=== PATIENT | male | born 1950 | race Caucasian/White ===

== ENCOUNTER 2021-05-03 13:36 | Emergency (ER) | payer OTHER ==
[~2021-05-03] VITALS: Ht 175.3 cm; Wt 70.3 kg
[2021-05-03 13:36] VITALS: BP 131/79
--- NOTE | 2021-05-03 13:37 | NUR ---
PT BIBA AND TAKEN TO BED 11
[2021-05-03 13:59] VITALS: BP 131/79
[2021-05-03] MEDS ORDERED: KETOROLAC 30 MG/ML VIAL IM ONE (14:10)
--- NOTE | 2021-05-03 14:24 | NUR ---
PT TAKEN TO XR VIA [facility].
[2021-05-03] MEDS ORDERED: HYDROcodone/APAP 5/325 MG 1 TAB TAB PO ONE (14:25)
--- NOTE | 2021-05-03 14:47 | NUR ---
[facility]
--- NOTE | 2021-05-03 15:00 | NUR ---
PT PROVIDED WITH URINAL BEDSIDE
[2021-05-03] MEDS ORDERED: NAPR-54 PO (15:22)
== END 2021-05-03 15:34 | disposition home or self-care (01) ==
LOC: MED 13:36
DX: M54.50 Low back pain, unspecified (principal); I11.0 Hypertensive heart disease with heart failure; I50.9 Heart failure, unspecified; Z98.890 Other specified postprocedural states; W19.XXXA Unspecified fall, initial encounter; Y93.89 Activity, other specified; Y92.89 Other specified places as the place of occurrence of the external cause; Y99.8 Other external cause status
CPT/HCPCS: 72072; 72110; 96372; 99284; J1885

== ENCOUNTER 2021-07-14 21:18 | Emergency (ER) | payer MEDICARE ==
[~2021-07-14] VITALS: Ht 190.5 cm; Wt 72.6 kg
[~2021-07-14 21:18] MED LIST: NAPR-54 PO
--- NOTE | 2021-07-14 21:24 | NUR ---
PT W/C ASSISTED TO LOBBY TO A/W EVALUATION.
[2021-07-14 21:27] VITALS: BP 113/72
--- NOTE | 2021-07-14 22:29 | NUR ---
RECEIVED CALL FROM ADMITTING STATINCarlos Enrique VOSSBS @ 2228 Addendum: 07/14/21 at 2234 by [facility] PATIENT LEFT WITHOUT BEING SEEN BY DR. ARTEAGA. NO FURTHER CARE PROVIDED FOR PATIENT.
== END 2021-07-14 22:28 | disposition left against medical advice (07) ==
LOC: MED 21:18
DX: M54.9 Dorsalgia, unspecified (principal); G89.29 Other chronic pain; Z53.21 Procedure and treatment not carried out due to patient leaving prior to being seen by health care provider

== ENCOUNTER 2022-02-25 16:10 | Emergency (ER) | payer MEDICARE ==
[~2022-02-25] VITALS: Ht 182.9 cm; Wt 74.8 kg
[2022-02-25 16:19] VITALS: BP 140/70
--- NOTE | 2022-02-25 18:10 | NUR ---
Patient being evaluated by DR ALANIZ at bedside.
[2022-02-25] MEDS ORDERED: MORPHINE SULFATE 4 MG/ML SYR IM ONE (18:20)
[2022-02-25] MEDS ORDERED: IBUP-2213 PO (18:27)
[2022-02-25] MEDS ORDERED: ACET-8905 PO (18:27)
--- NOTE | 2022-02-25 18:29 | NUR ---
PT REFUSING TO BE MOVED TO BED AND MEDICATED. MADE AWARE
--- NOTE | 2022-02-25 18:47 | NUR ---
PT PLACED IN RIGHT ORTHO-SHOE CMS WNL BEFORE AND AFTER. ERMD AND RN NOTIFIED.
--- NOTE | 2022-02-25 19:35 | NUR ---
Patient discharged with v/s stable. Written and verbal after care instructions given and explained. Patient verbalized understanding. Ambulatory with to car. All questions addressed prior to discharge. Advised to follow up with PMD.
== END 2022-02-25 19:35 | disposition home or self-care (01) ==
LOC: MED 16:10
DX: S92.424A Nondisplaced fracture of distal phalanx of right great toe, initial encounter for closed fracture (principal); I11.0 Hypertensive heart disease with heart failure; I50.9 Heart failure, unspecified; Z79.899 Other long term (current) drug therapy; Z98.890 Other specified postprocedural states; X58.XXXA Exposure to other specified factors, initial encounter; Y93.89 Activity, other specified; Y92.89 Other specified places as the place of occurrence of the external cause; Y99.8 Other external cause status
CPT/HCPCS: 73660; 99283

== ENCOUNTER 2023-06-10 21:36 | Emergency (ER) | payer MEDICARE ==
[~2023-06-10] VITALS: Ht 182.9 cm; Wt 70.3 kg
[~2023-06-10 21:36] MED LIST changes: +ACET-8905 PO; +IBUP-2213 PO
[2023-06-10 21:40] VITALS: BP 168/91; PULSE 69; RESP 18; TEMP 97.4; O2SAT 95
[2023-06-10] MEDS: HYDROcodone/APAP 5/325 MG 1 TAB TAB PO ONE (22:29)
[2023-06-11 01:08] VITALS: BP 142/91; PULSE 69; RESP 18; TEMP 97.4; O2SAT 95
== END 2023-06-11 01:08 | disposition home or self-care (01) ==
LOC: MED 21:36
DX: S50.311A Abrasion of right elbow, initial encounter (principal); M25.561 Pain in right knee; M54.50 Low back pain, unspecified; I11.0 Hypertensive heart disease with heart failure; Z79.899 Other long term (current) drug therapy; Z88.8 Allergy status to other drugs, medicaments and biological substances; W18.30XA Fall on same level, unspecified, initial encounter; Y93.89 Activity, other specified; Y92.89 Other specified places as the place of occurrence of the external cause; Y99.8 Other external cause status
CPT/HCPCS: 73080; 99283

== ENCOUNTER 2023-06-11 15:23 | Inpatient (IN) | payer MEDICARE ==
[~2023-06-11] VITALS: Ht 177.8 cm; Wt 72.6 kg
[~2023-06-11 15:23] MED LIST changes: +NAPR-337 PO; -NAPR-54 PO
[2023-06-11 15:41] VITALS: BP 166/96; PULSE 78; RESP 18; TEMP 97.8; O2SAT 98
[2023-06-11] MEDS: NACL 0.9% 1,000 ML IV ONE ×2 (16:36→18:53)
[2023-06-11 17:27] LABS: BASOPHILS # (AUTO) 0.1 K/uL (0.00-0.22); BASOPHILS % (AUTO) 0.7 % (0.0-2.0); EOSINOPHILS % (AUTO) 0.1 % (0.0-4.0); HEMOGLOBIN 12.2 g/dL (12.0-18.0); LYMPHOCYTES # (AUTO) 0.4 K/uL (2.0-11.5); LYMPHOCYTES % (AUTO) 5.7 % (20.5-51.1); MEAN CORPUSCULAR HEMOGLOBIN 37 pg (27-31); MEAN CORPUSCULAR HGB CONC 35 g/dL (33-37); MEAN CORPUSCULAR VOLUME 105.6 fL (80-94); MONOCYTES # (AUTO) 0.6 K/uL (0.8-1.0); MONOCYTES % (AUTO) 8.1 % (1.7-9.3); NEUTROPHILS # (AUTO) 6.7 K/uL (1.8-7.7); NEUTROPHILS % (AUTO) 85.4 % (42.2-75.2); PLATELET COUNT (AUTO) 137 K/uL (140-450); RED BLOOD CELL COUNT(AUTO) 3.31 MIL/uL (4.20-6.10); RED CELL DISTRIBUTION WIDTH 12.7 % (11.6-13.7); WHITE BLOOD COUNT (AUTO) 7.8 K/uL (4.8-10.8)
[2023-06-11 17:44] LABS: ANION GAP 18.1 (8-16); CALCIUM 9.2 mg/dL (8.5-10.1); CARBON DIOXIDE 23.7 mmol/L (21-32); POTASSIUM 3.8 mmol/L (3.5-5.1)
[2023-06-11 17:48] LABS: INR 1.6 (0.8-1.2); PROTHROMBIN TIME 16.4 secs (10.8-13.4)
[2023-06-11 17:56] LABS: PARTIAL THROMBOPLASTIN TIME 50.5 secs (22-35.6)
[2023-06-11 18:14] LABS: ALANINE AMINOTRANSFERASE 24 U/L (12-78); ALKALINE PHOSPHATASE 128 U/L (50-136); ASPARTATE AMINOTRANSFERASE 51 U/L (15-37); BILIRUBIN,DIRECT 0.6 mg/dL (0.0-0.3); CREATINE KINASE, TOTAL 182 U/L (39-308); THYROID STIMULATING HORMONE 2.86 uIU/mL (0.34-3.74); TOTAL BILIRUBIN 1.6 mg/dL (0.0-1.0)
[2023-06-11 18:30] LABS: APPEARANCE,URINE CLEAR (CLEAR); BILIRUBIN,URINE NEGATIVE (NEGATIVE); BLOOD, URINE TRACE-I (NEGATIVE); COLOR,URINE YELLOW (YELLOW); LEUKOCYTE ESTERASE ,URINE NEGATIVE (NEGATIVE); NITRITE, URINE NEGATIVE (NEGATIVE); PROTEIN,URINE NEGATIVE (NEGATIVE); UGLUCOSE NEGATIVE (NEGATIVE); UROBILINOGEN,URINE 0.2 EU/dL (0.2 - 1)
[2023-06-11 20:12] LABS: FLU A ANTIGEN negative (NEGATIVE); FLU B ANTIGEN NEGATIVE (NEGATIVE); RSV NEGATIVE (NEGATIVE)
[2023-06-11] MEDS: ACETAMINOPHEN EXTRA STRENGTH 500 MG TAB PO ONE (20:20)
[2023-06-11] MEDS ORDERED: ALBUTEROL 0.083% 2.5 MG/3 ML NEBU INH PRN (21:05)
[2023-06-11] MEDS: hydrALAZINE 20 MG/ML VIAL IVP PRN (22:32)
[2023-06-11 23:00] VITALS: PULSE 98; RESP 20; O2SAT 97; O2SAT 98
[2023-06-11] MEDS: NACL 0.9% 1,000 ML IV SCH (23:30)
[2023-06-11] MEDS: ONDANSETRON 4 MG/2 ML VIAL IVP PRN (23:30)
[2023-06-12] VITALS (10 sets, daily range): BP systolic 136–160; BP diastolic 58–85; PULSE 76–111; RESP 18–20; TEMP 97.6–98.8; O2SAT 97–99
[2023-06-12] MEDS: HYDROcodone/APAP 5/325 MG 1 TAB TAB PO PRN (04:34)
[2023-06-12 06:47] LABS: BASOPHILS % (AUTO) 0.4 % (0.0-2.0); HEMOGLOBIN 10.9 g/dL (12.0-18.0); LYMPHOCYTES # (AUTO) 0.6 K/uL (2.0-11.5); LYMPHOCYTES % (AUTO) 7.4 % (20.5-51.1); MEAN CORPUSCULAR HEMOGLOBIN 37 pg (27-31); MEAN CORPUSCULAR HGB CONC 35 g/dL (33-37); MEAN CORPUSCULAR VOLUME 106.1 fL (80-94); MONOCYTES # (AUTO) 0.7 K/uL (0.8-1.0); MONOCYTES % (AUTO) 9.6 % (1.7-9.3); NEUTROPHILS # (AUTO) 6.4 K/uL (1.8-7.7); NEUTROPHILS % (AUTO) 82.6 % (42.2-75.2); PLATELET COUNT (AUTO) 104 K/uL (140-450); RED BLOOD CELL COUNT(AUTO) 2.92 MIL/uL (4.20-6.10); RED CELL DISTRIBUTION WIDTH 12.9 % (11.6-13.7); WHITE BLOOD COUNT (AUTO) 7.8 K/uL (4.8-10.8)
[2023-06-12 07:01] LABS: ANION GAP 16.1 (8-16); CALCIUM 8.2 mg/dL (8.5-10.1); CARBON DIOXIDE 23.5 mmol/L (21-32); CREATININE 0.7 mg/dL (0.6-1.3); POTASSIUM 3.6 mmol/L (3.5-5.1)
[2023-06-12] MEDS ORDERED: HYDROCOLLOID DRESSING TP PRN (10:50)
[2023-06-12] MEDS: HYDROCOLLOID DRESSING TP SCH (13:02)
[2023-06-12] MEDS: METOPROLOL 50 MG TAB PO SCH (14:21)
[2023-06-12] MEDS: APIXABAN 2.5 MG TAB PO SCH (20:37)
[2023-06-13] VITALS (11 sets, daily range): BP systolic 149–180; BP diastolic 80–92; PULSE 64–89; RESP 18–20; TEMP 96.9–98.3; O2SAT 98–100
[2023-06-13 06:50] LABS: BASOPHILS # (AUTO) 0.1 K/uL (0.00-0.22); BASOPHILS % (AUTO) 0.9 % (0.0-2.0); EOSINOPHILS # (AUTO) 0.1 K/uL (0-0.4); EOSINOPHILS % (AUTO) 0.9 % (0.0-4.0); HEMATOCRIT 28.9 % (36-52); HEMOGLOBIN 10.1 g/dL (12.0-18.0); LYMPHOCYTES # (AUTO) 0.7 K/uL (2.0-11.5); LYMPHOCYTES % (AUTO) 11.9 % (20.5-51.1); MEAN CORPUSCULAR HEMOGLOBIN 37 pg (27-31); MEAN CORPUSCULAR HGB CONC 35 g/dL (33-37); MEAN CORPUSCULAR VOLUME 106.4 fL (80-94); MONOCYTES # (AUTO) 0.6 K/uL (0.8-1.0); MONOCYTES % (AUTO) 11.2 % (1.7-9.3); NEUTROPHILS # (AUTO) 4.2 K/uL (1.8-7.7); NEUTROPHILS % (AUTO) 75.1 % (42.2-75.2); PLATELET COUNT (AUTO) 84 K/uL (140-450); RED BLOOD CELL COUNT(AUTO) 2.72 MIL/uL (4.20-6.10); RED CELL DISTRIBUTION WIDTH 12.7 % (11.6-13.7); WHITE BLOOD COUNT (AUTO) 5.6 K/uL (4.8-10.8)
[2023-06-13 07:07] LABS: ANION GAP 11.3 (8-16); CALCIUM 8.2 mg/dL (8.5-10.1); CARBON DIOXIDE 25.7 mmol/L (21-32); CREATININE 0.6 mg/dL (0.6-1.3)
[2023-06-13] MEDS: POTASSIUM CHLORIDE 10 MEQ TABER PO SCH (08:22)
[2023-06-13] MEDS: ACETAMINOPHEN 325 MG TAB PO PRN (19:49)
[2023-06-14] VITALS: BP 136/72; PULSE 84; RESP 20; TEMP 96.9; O2SAT 100
[2023-06-14 04:00] VITALS: BP 152/84; PULSE 78; RESP 20; TEMP 97.4; O2SAT 100
[2023-06-14 07:03] LABS: BASOPHILS % (AUTO) 0.6 % (0.0-2.0); EOSINOPHILS # (AUTO) 0.1 K/uL (0-0.4); EOSINOPHILS % (AUTO) 1.1 % (0.0-4.0); HEMATOCRIT 35.6 % (36-52); HEMOGLOBIN 12.4 g/dL (12.0-18.0); LYMPHOCYTES % (AUTO) 14.2 % (20.5-51.1); MEAN CORPUSCULAR HEMOGLOBIN 37 pg (27-31); MEAN CORPUSCULAR HGB CONC 35 g/dL (33-37); MONOCYTES # (AUTO) 0.7 K/uL (0.8-1.0); MONOCYTES % (AUTO) 10.6 % (1.7-9.3); NEUTROPHILS % (AUTO) 73.5 % (42.2-75.2); PLATELET COUNT (AUTO) 97 K/uL (140-450); RED BLOOD CELL COUNT(AUTO) 3.36 MIL/uL (4.20-6.10); RED CELL DISTRIBUTION WIDTH 12.3 % (11.6-13.7); WHITE BLOOD COUNT (AUTO) 6.8 K/uL (4.8-10.8)
[2023-06-14 07:12] LABS: ANION GAP 14.9 (8-16); CALCIUM 8.8 mg/dL (8.5-10.1); CARBON DIOXIDE 26.7 mmol/L (21-32); CREATININE 0.6 mg/dL (0.6-1.3); POTASSIUM 3.6 mmol/L (3.5-5.1)
[2023-06-14 08:00] VITALS: BP 137/76; PULSE 77; PULSE 78; RESP 18; TEMP 97.1; O2SAT 100
[2023-06-14] MEDS ORDERED: METO50TA99 PO (11:43)
[2023-06-14] MEDS ORDERED: DABI150C PO (11:43)
== END 2023-06-14 19:07 | DRG 641 ==
LOC: MED 15:23 → MTU 21:05
PROVIDERS: ADMIT Family Medicine; ATTEND Family Medicine
DX: E86.0 Dehydration (principal); E87.20 Acidosis, unspecified; Z20.822 Contact with and (suspected) exposure to COVID-19; I10 Essential (primary) hypertension; I25.10 Atherosclerotic heart disease of native coronary artery without angina pectoris; I48.0 Paroxysmal atrial fibrillation; F39 Unspecified mood [affective] disorder; Z79.899 Other long term (current) drug therapy
CPT/HCPCS: 36415; 71045; 80048; 80076; 81003; 82550; 83605; 84443; 84484; 85025; 85610; 85730; 87040; 87081; 87420; 93005; 93880; 97112; 97116; 97163-GP; 97530; 99285; J0360; J2405; Q0092